=== PATIENT | female | born 1990 | race Caucasian/White ===

== ENCOUNTER 2017-10-22 16:55 | Inpatient (IN) | payer OTHER, SELFPAY ==
[2017-10-22 16:23] VITALS: BP 136/90; BMI 34.3
[2017-10-22] MEDS: Lactated Ringers 1,000 ML 50 ML IV (17:45)
[2017-10-22 18:06] VITALS: BMI 33.2
[2017-10-22 18:07] LABS: Hematocrit 38.5 % (37-47); Hemoglobin 13.3 g/dl (12.0-15.0); Mean Corp Hgb Conc 34.5 g/gl (32-36); Mean Corpuscular Volume 86.7 fL (81-99); Mean Platelet Vol. 10.3 fl (6.2-12.0); Platelet Count 187 K/mm3 (150-450); RBC Distribution Width CV 13.8 % (11.6-14.6); RBC Distribution Width SD 42.8 fl (35.1-43.9); Red Blood Count 4.44 M/mm3 (4.2-5.4)
[2017-10-22 18:08] LABS: Scan Indicated on CBC? Y/N NO
[2017-10-22 18:19] LABS: Creatinine, Serum 0.54 mg/dL (0.55-1.02)
[2017-10-22 18:20] LABS: AST(SGOT) 11 U/L (15-37); Alanine Aminotransfer ALT/SGPT 18 U/L (13-56); EST Glomerular Filtration Rate 142 mL/min (>60); Est Glom Filt Rate - Afr Amer 172 mL/min (>60); Uric Acid 4.8 mg/dL (2.6-6.0)
[2017-10-22 18:27] LABS: Prothrombin Time (Protime)PT. 12.3 SECONDS (11.7-14.9)
[2017-10-22 20:07] LABS: Protein, Urine (Random) 14.5 mg/dL (<11.9); Protein:Creat Ratio 139 mg/g CRE (0-200)
[2017-10-22] MEDS: Oxytocin 30 units/NS 500 ml 30 UNITS/500 ML IV.SOLN 334 UNITS IV (23:13)
[2017-10-22] MEDS: Oxytocin 30 units/NS 500 ml 30 UNITS/500 ML IV.SOLN 167 UNITS IV (23:30)
--- NOTE | 2017-10-23 00:13 | PCM.HPOB.BLA ---
- Problem List (1) Active labor at term Status: Acute (2) Rubella non-immune status, antepartum Status: Acute Comment: MMR PP (3) Supervision of normal first Status: Acute Qualifiers: Comment: TAO 11/04/17 gender surprise chuck History and Physical Date of Admission: 10/23/17 Intake Vital Signs 10/22/17 Height 5 ft 5 in 10/22/17 Weight: 206 lb 6 oz 10/22/17 Body Mass Index (BMI) 34.3 10/22/17 Blood Pressure 136/90 Intake Visit Reasons: 38 weeks Chief Complaint: est ob Spanish Interpreter Required: No Is patient in pain?: No Allergies No Known Allergies Allergy (Verified 10/22/17 16:23) Medications vitamin,calcium,cvztvdfb-gzud-apiqr acid tablet 1 tab PO QDAY 08/25/17 [History Confirmed 10/22/17] Last Menstral Period: 01/20/17 Zika: Zika virus screening: Negative : No PFSH PFSH Social History Smoking Status: Never smoker second hand exposure: No alcohol intake: never substance use type: does not use what type of physical activity do you participate in: walking frequency: 3-4 times per week duration: 15-30 minutes/day seatbelt use: always additional social history: [employer] Pregancy History 1 Elective abortions Hx Para Spontaneous abortions Hx # Term Pregnancies Ectopic pregnancies Hx # Pregnancies Multiple births # of living children HPI 38 weeks: Details: MELVINA TORRES is a 27 year old who presents for routine OB visit and is now 5 cm and IAL. FHT 150s. no vb or lof. she has mildly elevated bps at 130/90s OB Visit TAO Calculator Estimated Delivery Date 11/04/17 Based on Ultrasound Date 03/30/17 Current WG 38w 1d Number 1 Expected Delivery Route/Plan Specific Issue/Plans Flu and tdap given at employer([employer]) 28wk GCT and CBC at employer and normal/scanned to [place] minichart given Initial Weight: Not Recorded Date EGA Weight BP Urine Prot Glucose FHR FuHt Pres Mov CTX Dilation Effaced St Visit Note Provider Comments 08/25/17 29w 6d 197 lb 8 oz 108/70 139 30 Cephalic Active absent Doing well without concerns 12/19/17 31w 6d 200 lb 133/82 135 32 Cephalic Active absent Doing well without concerns SM 09/23/17 34w 0d 202 lb 4 oz 132/75 Negative Negative 152 34 Cephalic Active absent Mild URI sx. Denies CTX, LOF, VB. Good FM 10/09/17 36w 2d 205 lb 2 oz 129/76 Positive Negative 150 36 Cephalic Active absent 3 6: 0 -2 Mild URI sx. Denies CTX, LOF, VB. Good FM no vb lof good fm no regular ctx SM 10/15/17 37w 1d 205 lb 2 oz 132/89 Negative Negative 150 37 Cephalic Active absent 4.5 7: 0 -1 no vb lof good fm no regular ctx SM Visit Notes Visit Date: 10/15/17 ??no vb lof good fm no regular ctx ??Ivy?Robel??on?10/09/17 ??no vb lof good fm no regular ctx ??Ivy?Robel??on?10/09/17 Visit Date: 10/09/17 ??no vb lof good fm no regular ctx ??Ivy?Robel??on?10/09/17 ??Mild URI sx. Denies CTX, LOF, VB. Good FM ??Hope?Rayland,?FLOUR MIXER HELPER-C?on?09/23/17 ??Mild URI sx. Denies CTX, LOF, VB. Good FM ??Hope?Tatiana,?FLOUR MIXER HELPER-C?on?09/23/17 Visit Date: 09/23/17 ??Mild URI sx. Denies CTX, LOF, VB. Good FM ??Hope?Tatiana,?FLOUR MIXER HELPER-C?on?09/23/17 ??Doing well without concerns ??Hope?Rayland,?FLOUR MIXER HELPER-C?on?08/25/17 Visit Date: 09/08/17 ??Doing well without concerns ??Hope?Rayland,?FLOUR MIXER HELPER-C?on?08/25/17 Visit Date: 08/25/17 ??Doing well without concerns ??Hope?Rayland,?FLOUR MIXER HELPER-C?on?08/25/17 ACOG First Trimester First Trimester: Desire for , Alcohol, Tobacco Cessation, Illicit/Recreational Drug/Substance Use, Intimate Partner Violence, Barriers to care, Unstable Housing, Communication Barriers, Environmental/Work Hazards, Anticipated Course of Care, Toxoplasmosis Precations, Use of Any medications, Sexual activity, Exercise, Dental Care, Sauna/Hot tub use, Seat Belt use, Childbirth classes/Hospital facilities, , Travel, Indications for US and Screening for Aneuploidy Second Trimester Second Trimester: Signs and Symptoms of Labor, Selecting a care provider, Reproductive Life Planning, Care Planning, Tobacco Cessation, Depression/Anxiety and Intimate Partner Violence Third Trimester Third Trimester: Pain Management Plans, Trial of Labor after Counseling, Labor support person(s), Immediate Larc, Circumcision preference, Movement Monitoring, Signs and Symptoms of Preeclampsia, Labor Signs, Cervical Ripening/Labor Induction Counseling, Postterm Counseling, Feeding Yes , [place] Education, Family Medical Leave or Disability Forms, Depression and Depression; discussed Intimate Partner Violence ROS Const Denies fever(s) GI Denies abdominal pain, Reports as per HPI Denies vaginal discharge, Denies abnormal vaginal bleeding, Reports as per HPI Exam Const General: healthy appearing, comfortable, no acute distress GI Inspection: normal to inspection Palpation: soft, nontender Assessment & Plan Problems 1. Encounter for supervision of normal first in third trimester Z34.03 TAO 11/04/17 gender surprise chuck 2. Rubella non-immune status, antepartum O99.89; Z28.3 MMR PP Plan ial to l and d, check preeclampsia labs Orders Orders: POC Urinalysis 2 Dip (Clinic) Today Results [id number] Office Urine Glucose Negative Last Edit by Jacklyn Pozo on 10/22/17 16:25 Office Urine Protein Negative Last Edit by Jacklyn Pozo on 10/22/17 16:25 Coding Level of Care Code OB Routine Diagnoses Encounter for supervision of normal first in third trimester Z34.03 ??Trimester: third trimester Rubella non-immune status, antepartum O99.89; Z28.3
--- NOTE | 2017-10-23 00:16 | HP.PCM_ITS ---
- Problem List (1) Active labor at term Status: Acute (2) Rubella non-immune status, antepartum Status: Acute Comment: MMR PP (3) Supervision of normal first Status: Acute Qualifiers: Comment: TAO 11/04/17 gender surprise chuck History and Physical Date of Admission: 10/23/17 Intake Vital Signs 3 10/22/17 Height 5 ft 5 in 10/22/17 Weight: 206 lb 6 oz 10/22/17 Body Mass Index (BMI) 34.3 10/22/17 Blood Pressure 136/90 Intake Visit Reasons: 38 weeks Chief Complaint: est ob Actuarial Associate Required: No Is patient in pain?: No Allergies No Known Allergies Allergy (Verified 10/22/17 16:23) Medications vitamin,calcium,btzlbsox-yhdd-ymkdb acid tablet 1 tab PO QDAY 08/25/17 [History Confirmed 10/22/17] Last Menstral Period: 01/20/17 Zika: Zika virus screening: Negative : No PFSH PFSH Social History Smoking Status: Never smoker second hand exposure: No alcohol intake: never substance use type: does not use what type of physical activity do you participate in: walking frequency: 3-4 times per week duration: 15-30 minutes/day seatbelt use: always additional social history: [employer] Pregancy History 2 1 Elective abortions Hx Para Spontaneous abortions Hx # Term Pregnancies Ectopic pregnancies Hx # Pregnancies Multiple births # of living children HPI 38 weeks: Details: MELVINA TORRES is a 27 year old who presents for routine OB visit and is now 5 cm and IAL. FHT 150s. no vb or lof. she has mildly elevated bps at 130/90s OB Visit TAO Calculator 2 Estimated Delivery Date 11/04/17 Based on Ultrasound Date 03/30/17 Current WG 38w 1d Number 1 Expected Delivery Route/Plan Specific Issue/Plans Flu and tdap given at employer([employer]) 28wk GCT and CBC at employer and normal/scanned to [place] minichart given Initial Weight: Not Recorded Date EGA Weight BP Urine Prot Glucose FHR FuHt Pres Mov CTX Dilation Effaced St Visit Note Provider Comments 08/25/17 29w 6d 197 lb 8 oz 108/70 139 30 Cephalic Active absent Doing well without concerns 09/08/17 31w 6d 200 lb 133/82 135 32 Cephalic Active absent Doing well without concerns SM 09/23/17 34w 0d 202 lb 4 oz 132/75 Negative Negative 152 34 Cephalic Active absent Mild URI sx. Denies CTX, LOF, VB. Good FM 10/09/17 36w 2d 205 lb 2 oz 129/76 Positive Negative 150 36 Cephalic Active absent 3 6: 0 -2 Mild URI sx. Denies CTX, LOF, VB. Good FM no vb lof good fm no regular ctx SM 10/15/17 37w 1d 205 lb 2 oz 132/89 Negative Negative 150 37 Cephalic Active absent 4.5 7: 0 -1 no vb lof good fm no regular ctx SM Visit Notes Visit Date: 10/15/17 ??no vb lof good fm no regular ctx ??Ivy?Robel??on?10/09/17 ??no vb lof good fm no regular ctx ??Ivy?Robel??on?10/09/17 Visit Date: 10/09/17 ??no vb lof good fm no regular ctx ??Ivy?Robel??on?10/09/17 ??Mild URI sx. Denies CTX, LOF, VB. Good FM ??Hope?Gilmore,?MEDIA RELATIONS ASSOCIATE-C?on?09/23/17 ??Mild URI sx. Denies CTX, LOF, VB. Good FM ??Hope?Tatiana,?MEDIA RELATIONS ASSOCIATE-C?on?09/23/17 Visit Date: 09/23/17 ??Mild URI sx. Denies CTX, LOF, VB. Good FM ??Hope?Tatiana,?MEDIA RELATIONS ASSOCIATE-C?on?09/23/17 ??Doing well without concerns ??Hope?Tatiana,?MEDIA RELATIONS ASSOCIATE-C?on?08/25/17 Visit Date: 09/08/17 ??Doing well without concerns ??Hope?Gilmore,?MEDIA RELATIONS ASSOCIATE-C?on?08/25/17 Visit Date: 08/25/17 ??Doing well without concerns ??Hope?Tatiana,?MEDIA RELATIONS ASSOCIATE-C?on?08/25/17 ACOG First Trimester First Trimester: Desire for , Alcohol, Tobacco Cessation, Illicit/ Recreational Drug/Substance Use, Intimate Partner Violence, Barriers to care, Unstable Housing, Communication Barriers, Environmental/Work Hazards, Anticipated Course of Care, Toxoplasmosis Precations, Use of Any medications, Sexual activity, Exercise, Dental Care, Sauna/Hot tub use, Seat Belt use, Childbirth classes/Hospital facilities, , Travel, Indications for US and Screening for Aneuploidy Second Trimester Second Trimester: Signs and Symptoms of Labor, Selecting a care provider, Reproductive Life Planning, Care Planning, Tobacco Cessation, Depression/Anxiety and Intimate Partner Violence Third Trimester Third Trimester: Pain Management Plans, Trial of Labor after Counseling , Labor support person(s), Immediate Larc, Circumcision preference, Movement Monitoring, Signs and Symptoms of Preeclampsia, Labor Signs, Cervical Ripening/Labor Induction Counseling, Postterm Counseling, Feeding Yes , Education, Family Medical Leave or Disability Forms, Depression and Depression; discussed Intimate Partner Violence ROS Const Denies fever(s) GI Denies abdominal pain, Reports as per HPI Denies vaginal discharge, Denies abnormal vaginal bleeding, Reports as per HPI Exam Const General: healthy appearing, comfortable, no acute distress GI Inspection: normal to inspection Palpation: soft, nontender Assessment & Plan Problems 1. Encounter for supervision of normal first in third trimester Z34.03 TAO 11/04/17 gender surprise chuck 2. Rubella non-immune status, antepartum O99.89; Z28.3 MMR PP Plan ial to l and d, check preeclampsia labs Orders Orders: 2 POC Urinalysis 2 Dip (Clinic) Today Results [id number] 2 Office Urine Glucose Negative Last Edit by Jacklyn Pozo on 10/22/17 16:25 Office Urine Protein Negative Last Edit by Jacklyn Pozo on 10/22/17 16 :25 Coding Level of Care Code OB Routine Diagnoses Encounter for supervision of normal first in third trimester Z34.03 ??Trimester: third trimester Rubella non-immune status, antepartum O99.89; Z28.3
--- NOTE | 2017-10-23 00:16 | PCM.OB.VAG ---
- Problem List (1) Active labor at term Status: Acute (2) Rubella non-immune status, antepartum Status: Acute Comment: MMR PP (3) Supervision of normal first Status: Acute Qualifiers: Comment: TAO 11/04/17 gender surprise chuck (4) Normal vaginal delivery Status: Acute Vaginal Delivery Maternal Presentation: Active Labor 27 yo @ 38w1d presents IAL Amniotic Membrane Rupture Type: Artificial Amniotic Fluid Description: Clear Final TAO: 11/04/17 Gestational age: 38 Weeks and 2 Days Date of Procedure: 10/22/17 Pre-Operative Diagnosis: ial Post-Operative Diagnosis: same Surgery/ Procedure Performed: Spontaneous Vaginal Delivery Type of Anesthesia: Local with 1% lidocaine, Pudendal block with 1% lidocaine Description of Procedure: pudendal block placed without difficulty after betadine prepped. 10cc lidocaine injected bilaterally 1 cm medial and posterior to ischial spine. head delivered atraumatically follow by rest of , placed on maternal abdomen, and then delayed cord clamping followed by spontaneous placental expulsion. 2nd degree laceration noted and repaired in the usual fashion with 2-0 vicryl without complication. local lidocaine used for anesthesia. Presentation: [facility] Placental Delivery Description: Spontaneous Placenta Disposition: [facility] Cord Vessel Description: 3 Vessels Cord Entanglement: None Estimated Blood Loss: 400 A gender: Male Episiotomy Description: None Laceration: Perineal Extension/lac, 2nd degree Medications given after delivery: IV Pitocin Complications: None
--- NOTE | 2017-10-23 00:19 | OP.PCM_ITS ---
- Problem List (1) Active labor at term Status: Acute (2) Rubella non-immune status, antepartum Status: Acute Comment: MMR PP (3) Supervision of normal first Status: Acute Qualifiers: Comment: TAO 11/04/17 gender surprise chuck (4) Normal vaginal delivery Status: Acute Vaginal Delivery Maternal Presentation: Active Labor 27 yo @ 38w1d presents IAL Amniotic Membrane Rupture Type: Artificial Amniotic Fluid Description: Clear Final TAO: 11/04/17 Gestational age: 38 Weeks and 2 Days Date of Procedure: 10/22/17 Pre-Operative Diagnosis: ial Post-Operative Diagnosis: same Surgery/ Procedure Performed: Spontaneous Vaginal Delivery Type of Anesthesia: Local with 1% lidocaine, Pudendal block with 1% lidocaine Description of Procedure: pudendal block placed without difficulty after betadine prepped. 10cc lidocaine injected bilaterally 1 cm medial and posterior to ischial spine. head delivered atraumatically follow by rest of , placed on maternal abdomen, and then delayed cord clamping followed by spontaneous placental expulsion. 2nd degree laceration noted and repaired in the usual fashion with 2 -0 vicryl without complication. local lidocaine used for anesthesia. Presentation: [facility] Placental Delivery Description: Spontaneous Placenta Disposition: [facility] Cord Vessel Description: 3 Vessels Cord Entanglement: None Estimated Blood Loss: 400 Infant A gender: Male Episiotomy Description: None Laceration: Perineal Extension/lac, 2nd degree Medications given after delivery: IV Pitocin Complications: None
[2017-10-23] MEDS: Naproxen 250 MG Tablet PO ×3 (01:06→19:57)
[2017-10-23 04:14] VITALS: BP 120/75; PULSE 87; RESP 18; TEMP 37.2; O2SAT 98
[2017-10-23 08:00] VITALS: BP 113/71; PULSE 75; RESP 16; TEMP 36.9; O2SAT 96
[2017-10-23] MEDS: Senna/Docusate Sodium 1 Tablet PO (11:18)
[2017-10-23] MEDS: Dibucaine 30 GM Tube 1 APPLIC TOPICAL (11:19)
[2017-10-23] MEDS: Prenatal Vits Tablet 1 TABLET PO (11:19)
[2017-10-23 12:50] VITALS: BP 117/62; PULSE 80; RESP 16; TEMP 37.2; O2SAT 97
[2017-10-23 16:13] VITALS: BP 129/82; PULSE 87; RESP 16; TEMP 36.9; O2SAT 97
[2017-10-23 19:50] VITALS: BP 139/88; PULSE 120; RESP 16; TEMP 36.8; O2SAT 99
[2017-10-24 01:54] VITALS: BP 128/82; PULSE 82; RESP 16; TEMP 36.9; O2SAT 96
[2017-10-24] MEDS: Naproxen 250 MG Tablet PO (05:44)
[2017-10-24 07:57] VITALS: BP 133/87; PULSE 100; RESP 16; TEMP 36.8; O2SAT 99
--- NOTE | 2017-10-24 08:21 | PCM.PN.OB ---
Patient Problems: Active and Suspected Problems (Last Reviewed 10/22/17 @ 16:23 by Jacklyn Pozo) Active labor at term (Acute) Normal vaginal delivery (Acute) Subjective: see 10/23/17 at 1700 doing well no complaints - Physical Exam General: Alert, Oriented x3 Lungs: Normal air movement Abdomen: Soft Vital Signs Temp Pulse Resp BP Pulse Ox 98.3 F 100 16 133/87 H 99 10/24/17 07:57 10/24/17 07:57 10/24/17 07:57 10/24/17 07:57 10/24/17 07:57 Oxygen Delivery Method Room Air Weight: 206 lb Body Mass Index (BMI) 33.2 Intake and Output for Last 24 Hours 10/22/17 10/23/17 10/24/17 23:59 23:59 23:59 Intake Total 695 / 695 334 / 334 Output Total 150 / 150 1800 / 1800 Balance 545 / 545 -1466 / -1466 Assessment/Plan Active and Suspected Problems (Last Reviewed 10/22/17 @ 16:23 by Jacklyn Pozo) Active labor at term (Acute) Normal vaginal delivery (Acute) s/p routine care
--- NOTE | 2017-10-24 08:27 | PN.OBGYN_ITS ---
Patient Problems: Active and Suspected Problems (Last Reviewed 10/22/17 @ 16:23 by Jacklyn oPzo) Active labor at term (Acute) Normal vaginal delivery (Acute) - Physical Exam General: Alert, Oriented x3 Vital Signs Temp Pulse Resp BP Pulse Ox 98.3 F 100 16 133/87 H 99 10/24/17 07:57 10/24/17 07:57 10/24/17 07:57 10/24/17 07:57 10/24/17 07:57 Oxygen Delivery Method Room Air Weight: 206 lb Body Mass Index (BMI) 33.2 Intake and Output for Last 24 Hours 10/22/17 10/23/17 10/24/17 23:59 23:59 23:59 Intake Total 695 / 695 334 / 334 Output Total 150 / 150 1800 / 1800 Balance 545 / 545 -1466 / -1466 Assessment/Plan Active and Suspected Problems (Last Reviewed 10/22/17 @ 16:23 by Jacklyn Pozo) Active labor at term (Acute) Normal vaginal delivery (Acute) s/p routine care [facility]
--- NOTE | 2017-10-24 08:27 | PCM.DCVAG ---
Additional Instructions: If you experience any of the following, contact your healthcare provider. Bleeding that soaks a pad every hour for 2 hours Fever 100.4 or higher Unrelieved incision or abdominal pain Swelling, redness, discharge or bleeding from your incision or episiotomy site Your incision begins to separate Problems urinating (including inability to urinate or burning while urinating). Visual changes Severe headache Flu-like symptoms Pain or redness in one of both of your breasts Pain, warmth, tenderness or swelling in your legs, especially the calf area Frequent nausea and vomiting Symptoms of depression or anxiety If you experience any of the following, call 911 or go to the nearest Emergency Room. Chest pain Problems breathing Seizure activity Partial or complete paralysis of a body part, slurred speech, weakness or drooping of the face, or a sudden inability to walk or hold your balance Allergies/Adverse Reactions: Allergies No Known Allergies Allergy (Verified 10/22/17 19:22) Medications to take at Discharge vitamin,calcium,hhovqqzr-hykd-ydmzr acid tablet 1 tab PO QDAY 08/25/17 Please Follow Up With: Ivy Huston MD - [phone] When: Call to make an appointment with your doctor in 6 weeks. If you had elevated Blood pressure or 4th degree laceration you will need to be seen in 2 weeks. Primary Care Physician: Almita Hussein [Primary Care Provider] -
--- NOTE | 2017-10-24 08:28 | DCINST_ITS ---
Additional Instructions: If you experience any of the following, contact your healthcare provider. * Bleeding that soaks a pad every hour for 2 hours * Fever 100.4 or higher * Unrelieved incision or abdominal pain * Swelling, redness, discharge or bleeding from your incision or episiotomy site * Your incision begins to separate * Problems urinating (including inability to urinate or burning while urinating) . * Visual changes * Severe headache * Flu-like symptoms * Pain or redness in one of both of your breasts * Pain, warmth, tenderness or swelling in your legs, especially the calf area * Frequent nausea and vomiting * Symptoms of depression or anxiety If you experience any of the following, call 911 or go to the nearest Emergency Room. * Chest pain * Problems breathing * Seizure activity * Partial or complete paralysis of a body part, slurred speech, weakness or drooping of the face, or a sudden inability to walk or hold your balance Allergies/Adverse Reactions: Allergies No Known Allergies Allergy (Verified 10/22/17 19:22) Medications to take at Discharge vitamin,calcium,naqugfwt-ypxj-croll acid tablet 1 tab PO QDAY 08/25/17 Please Follow Up With: Ivy Huston MD - [phone] When: Call to make an appointment with your doctor in 6 weeks. If you had elevated Blood pressure or 4th degree laceration you will need to be seen in 2 weeks. Primary Care Physician: Almita Hussein [Primary Care Provider] -
[2017-10-24 13:00] VITALS: BP 125/78; PULSE 96; RESP 16; TEMP 37; O2SAT 97
--- NOTE | 2017-10-24 16:02 | NURSING ---
pt taken out in wheelchair after giving verbal and written discharge instructions. pt and verbalized understanding. baby in carseat on pt lab accompanied by father of baby.
== END 2017-10-24 15:45 | disposition home or self-care (01) | DRG 775 ==
PROVIDERS: Admitting Provider Obstetrics & Gynecology; Family Provider Family Medicine; PCP Family Medicine; Visit Provider Obstetrics & Gynecology
DX: O70.1 Second degree perineal laceration during delivery (principal); Z37.0 Single live birth; O99.89 Other specified diseases and conditions complicating pregnancy, childbirth and the puerperium; Z28.3 Underimmunization status; Z3A.38 38 weeks gestation of pregnancy
CPT/HCPCS: 59025; 59050; 82565; 82570; 84156; 84450; 84460; 84550; 85027; 85610; 85730; 86850; 86900; 99218; J7120; G0378

== ENCOUNTER 2017-12-01 10:10 | Outpatient (CLI) | payer OTHER, SELFPAY ==
[2017-12-03 12:52] LABS: HPV Reflexed? NOT INDICATED
== END 2017-12-01 11:10 | disposition home or self-care (01) ==
LOC: WPOUT 10:19 → WP 10:24
PROVIDERS: Family Provider Family Medicine; PCP Family Medicine; Visit Provider Obstetrics & Gynecology
DX: Z12.4 Encounter for screening for malignant neoplasm of cervix (principal); Z39.1 Encounter for care and examination of lactating mother
CPT/HCPCS: 88175; 96152; G0145

== ENCOUNTER → 2019-07-07 14:37 | Outpatient (CLI) | payer OTHER, SELFPAY ==
[2019-07-07 13:42] VITALS: BMI 33.2
[2019-07-07 15:05] LABS: Absolute Neutrophil Count 5.6 X10^3/uL (2.0-7.7); Basophil# 0.02 X10^3/uL; Basophil% 0.2 % (0-1); Eosinophil# 0.03 X10^3/uL; Eosinophils% 0.4 % (0-5); Hemoglobin 13.2 g/dL (12.0-15.0); Lymphocyte % 24.2 % (19-41); Mean Corp Hgb Conc 33.8 g/dL (32-36); Mean Corpuscular Hgb 29.6 pg (27.0-32.0); Mean Corpuscular Volume 87.4 fL (81-99); Mean Platelet Vol. 9.3 fl (6.2-12.0); Monocyte# 0.58 X10^3/uL; NRBC Flagged by Analyzer 0 % (0-5); Neutrophil # 5.61 X10^3/uL (2.7-7.7); Neutrophil % 67.8 % (47-70); Platelet Count 211 K/mm3 (150-450); RBC Distribution Width CV 12.2 % (11.6-14.6); RBC Distribution Width SD 39.4 fl (35.1-43.9); Red Blood Count 4.46 M/mm3 (4.2-5.4); White Blood Count 8.3 K/mm3 (4.4-11.0)
[2019-07-07 18:31] LABS: Chlamydia Trachomatis by PCR Negative (Negative); Neisserai gonorrhoeae by PCR Negative (Negative); Probe Check PASS; Sample Adequacy Control PASS; Specimen Processing Control PASS
[2019-07-08 10:07] LABS: HIV - WCH Non-Reactive (Nonreactive); Hepatitis B Surface Antigen Non-Reactive (Nonreactive); Rubella IgG 57.7 IU/mL
[2019-07-15 02:36] LABS: Rapid Plasmin Reagin (RPR) NONREACTIVE (NONREACTIVE)
== END ==
PROVIDERS: Family Provider Family Medicine; PCP Family Medicine; Referring Provider Nurse Practitioner Women's Health; Visit Provider Nurse Practitioner Women's Health
DX: Z34.90 Encounter for supervision of normal pregnancy, unspecified, unspecified trimester (principal)
CPT/HCPCS: 36415; 85025; 86592; 86703; 86762; 86850; 86900; 86901; 87086; 87088; 87340; 87491; 87591

== ENCOUNTER → 2019-07-08 13:57 | Outpatient (CLI) | payer OTHER, SELFPAY ==
[2019-07-07 13:42] VITALS: BMI 33.2
--- NOTE | 2019-07-08 14:00 | US_ITS ---
STUDY: FIRST TRIMESTER OBSTETRICAL ULTRASOUND REASON FOR EXAM: Female, 29 years old . Gestational age. LMP: May 07, 2019. TECHNIQUE: Transvaginal TECHNICAL QUALITY: Adequate. PRIOR ULTRASOUND: None. FINDINGS: There is visualization of a single gestational sac in a normal intrauterine position. The mean sac diameter (MSD) measures 3.5 cm, indicating an estimated gestational age (EGA) of 9 weeks, 0 days. The gestational sac shape is within normal limits. There is a visualized yolk sac. The yolk sac measures 3 mm. The placenta is non-visualized. There is visualization of a live embryo. The crown-rump length (CRL) measures 2.2 cm, indicating an estimated gestational age (EGA) of 8 weeks, 6 days. There is demonstrated cardiac activity with a heart rate of 178 bpm. The estimated gestation age (EGA) by LMP is 8 weeks, 6 days. The estimated date of delivery (TAO) by LMP is February 11, 2020.. The estimated gestation age (EGA) by US is 9 weeks, 0 days. The estimated date of delivery (TAO) by US is February 10, 2020. The uterus measures 8.5 cm x 7.2 cm x 5.8 cm. The uterus is retroverted.. There is no demonstrated uterine fibroid. The cervix is closed. The right ovary measures 2.2 cm x 1.7 cm x 1.6 cm. There is no right ovarian cyst. There is no visualized right adnexal mass or complex lesion. The left ovary measures 3.5 cm x 2.6 cm x 1.8 cm. There is no left ovarian cyst. There is no visualized left adnexal mass or complex lesion. There is no fluid in the cul de sac. US/Transvaginal w/Preg US IMPRESSION: Single live intrauterine gestation with a mean gestational age of 9 weeks. Electronically Signed: James Craig, at 14:47 EDT , Service support ,
== END ==
PROVIDERS: Family Provider Family Medicine; PCP Family Medicine; Referring Provider Nurse Practitioner Women's Health; Visit Provider Nurse Practitioner Women's Health
DX: O26.849 Uterine size-date discrepancy, unspecified trimester (principal); Z3A.00 Weeks of gestation of pregnancy not specified
CPT/HCPCS: 76817

== ENCOUNTER → 2019-08-03 14:21 | Outpatient (CLI) | payer OTHER, SELFPAY ==
[2019-08-03 14:04] VITALS: BMI 33.2
== END ==
PROVIDERS: Family Provider Family Medicine; PCP Family Medicine; Referring Provider Nurse Practitioner Women's Health; Visit Provider Nurse Practitioner Women's Health
DX: Z34.82 Encounter for supervision of other normal pregnancy, second trimester (principal)
CPT/HCPCS: 36415

== ENCOUNTER → 2019-09-27 09:51 | Outpatient (CLI) | payer OTHER, SELFPAY ==
[2019-09-02 11:38] VITALS: BMI 33.2
--- NOTE | 2019-09-27 09:52 | US_ITS ---
STUDY: SECOND AND THIRD TRIMESTER OBSTETRICAL ULTRASOUND REASON FOR EXAM: Female, 29 years old ANATOMY LMP: May 07, 2019. TECHNIQUE: Transabdominal TECHNICAL QUALITY: Adequate. PRIOR ULTRASOUND: Comparison is made with prior study dated July 08, 2019. FINDINGS: There is a single intrauterine fetus. The fetus is in a breech presentation. There is demonstrated cardiac activity with a heart rate of 150 bpm. There is a normal amniotic fluid volume. The largest amniotic fluid pocket measures 3.1 cm x 6.1 cm. The amniotic fluid index (ANGE) is 11.24 cm. The placenta is anterior in location and is not low lying. There are Grade 0 placental changes. The cervix measures 3.9 cm in length. The adnexal regions are not visualized. BIOMETRY: BPD: 4.71 cm: 20 weeks, 1 days HC: 17.81 cm: 20 weeks, 1 days AC: 15.66 cm: 20 weeks, 5 days FL: 3.29 cm: 20 weeks, 1 days CI: 75.7% FL/BPD: 69.9% FL/HC: FL/AC: 21% HC/AC: 1.14 age by current US: 20 weeks, 2 days. TAO by current US: February 12, 2020. Estimated weight: 360 grams, +/- 53 grams, 50 %. age by prior US: 20 weeks, 4 days. TAO by prior US: February 10, 2020. Age by LMP: 20 weeks, 3 days. TAO by LMP: February 11, 2020. ANATOMY: Gender: Indeterminant Cranium: Normal lateral ventricles. Normal choroid plexus. Normal cerebellum. Normal cisterna magna. Normal face, nose and lips. Chest: Normal 4-chamber heart. Abdomen/Pelvis: Normal diaphragm. Normal stomach. Normal abdominal wall. Normal cord insertion. Normal 3 vessel cord. Normal kidneys. Normal bladder. Spine: Limited visualization of the spine due to the position. Extremities: Normal bilateral upper extremities. Normal bilateral lower extremities. US/OB Anatomy Scan IMPRESSION: Single live intrauterine gestation with a mean gestational age of 20 weeks and 4 days. The measurements obtained today following the normal expected range. Limited visualization of the spine due to the positioning. Electronically Signed: James Craig, at 15:58 EST , Service support ,
== END ==
PROVIDERS: Family Provider Family Medicine; PCP Family Medicine; Referring Provider Obstetrics & Gynecology; Visit Provider Obstetrics & Gynecology
DX: Z36.89 Encounter for other specified antenatal screening (principal)
CPT/HCPCS: 76805

== ENCOUNTER → 2019-09-28 11:10 | Outpatient (CLI) | payer OTHER, SELFPAY ==
[2019-09-28 10:48] VITALS: BMI 26.4
== END ==
PROVIDERS: Family Provider Family Medicine; PCP Family Medicine; Referring Provider Obstetrics & Gynecology; Visit Provider Obstetrics & Gynecology
DX: Z36.9 Encounter for antenatal screening, unspecified (principal)
CPT/HCPCS: 36415

== ENCOUNTER → 2019-11-14 | Outpatient (CLI) | payer OTHER, SELFPAY ==
[2019-11-14 15:00] VITALS: BMI 33.2
[2019-11-14 16:24] LABS: Absolute Lymphocyte Count 2.25 X10^3/uL (0.83-4.51); Absolute Neutrophil Count 7.4 X10^3/uL (2.0-7.7); Basophil# 0.02 X10^3/uL; Basophil% 0.2 % (0-1); Eosinophil# 0.02 X10^3/uL; Eosinophils% 0.2 % (0-5); Hematocrit 36.7 % (37-47); Hemoglobin 12.1 g/dL (12.0-15.0); Lymphocyte # 2.25 X10^3/ul (4.0); Lymphocyte % 21.9 % (19-41); Mean Corpuscular Hgb 29.5 pg (27.0-32.0); Mean Corpuscular Volume 89.5 fL (81-99); Mean Platelet Vol. 9.4 fl (6.2-12.0); Monocyte# 0.52 X10^3/uL; Monocyte% 5.1 % (0-10); NRBC Flagged by Analyzer 0 % (0-5); Neutrophil # 7.42 X10^3/uL (2.7-7.7); Neutrophil % 72.1 % (47-70); Platelet Count 169 K/mm3 (150-450); RBC Distribution Width CV 13.1 % (11.6-14.6); RBC Distribution Width SD 43.1 fl (35.1-43.9); White Blood Count 10.3 K/mm3 (4.4-11.0)
[2019-11-14 16:44] LABS: Glucose Challenge Gest 1H 50g 139 mg/dL (70-140)
== END | disposition home or self-care (01) ==
LOC: PAVLAB 15:32
PROVIDERS: PCP Family Medicine; Referring Provider Obstetrics & Gynecology; Visit Provider Obstetrics & Gynecology
DX: Z36.89 Encounter for other specified antenatal screening (principal)
CPT/HCPCS: 36415; 82950; 85025

== ENCOUNTER → 2019-11-18 | Outpatient (CLI) | payer OTHER, SELFPAY ==
[2019-11-14 15:00] VITALS: BMI 33.2
[2019-11-18 07:40] LABS: Glucose GTT-Gestation. Fasting 88 mg/dL (<105)
[2019-11-18 08:45] LABS: Glucose GTT-Gestational 1 Hr 129 mg/dL (<190)
[2019-11-18 10:30] LABS: Glucose GTT-Gestational 2 Hr 101 mg/dL (<165)
[2019-11-18 10:53] LABS: Glucose GTT-Gestational 3 Hr 78 L (<145)
== END | disposition home or self-care (01) ==
LOC: LAB 07:00
PROVIDERS: PCP Family Medicine; Visit Provider Obstetrics & Gynecology
DX: O99.810 Abnormal glucose complicating pregnancy (principal); Z3A.00 Weeks of gestation of pregnancy not specified
CPT/HCPCS: 36415; 82951; 82952

== ENCOUNTER → 2020-01-19 | Outpatient (CLI) | payer OTHER, SELFPAY ==
[2020-01-19 14:25] VITALS: BMI 33.2
== END | disposition home or self-care (01) ==
LOC: LABSPEC 16:11
PROVIDERS: PCP Family Medicine; Referring Provider Obstetrics & Gynecology; Visit Provider Obstetrics & Gynecology
DX: Z34.80 Encounter for supervision of other normal pregnancy, unspecified trimester (principal)
CPT/HCPCS: 87081

== ENCOUNTER → 2020-01-20 | Outpatient (CLI) | payer OTHER, SELFPAY ==
[2020-01-19 14:25] VITALS: BMI 33.2
--- NOTE | 2020-01-20 18:22 | US_ITS ---
STUDY: SECOND AND THIRD TRIMESTER OBSTETRICAL ULTRASOUND REASON FOR EXAM: Female, 29 years old. Growth. Date discrepancy. LMP: May 07, 2019. TECHNIQUE: Transabdominal TECHNICAL QUALITY: July 08, 2019 and September 27, 2019. PRIOR ULTRASOUND: None. FINDINGS: There is a single intrauterine fetus. The fetus is in a cephalic presentation. There is demonstrated cardiac activity with a heart rate of 125 bpm. There is a normal amniotic fluid volume. The largest amniotic fluid pocket measures 3.75 cm. The amniotic fluid index (ANGE) is 10.7 cm. The placenta is anterior in location and is not low lying. There are Grade 1 placental changes. The cervix measures 3.1 cm in length. The adnexal regions are not visualized. BIOMETRY: BPD: 8.83 cm: 35 weeks, 5 days HC: 32.39 cm: 36 weeks, 5 days AC: 30.89 cm: 34 weeks, 6 days FL: 7.01 cm: 36 weeks, 0 days CI: 82 FL/BPD: 79 FL/HC: FL/AC: 23 HC/AC: 1.05 age by current US: 35 weeks, 6 days. TAO by current US: February 18, 2020. Estimated weight: 2673 grams, +/- 390 grams, 20 %. age by prior US: 36 weeks, 5 days. TAO by prior US: February 10, 2020. Age by LMP: 36 weeks, 6 days. TAO by LMP: February 11, 2020. US/OB Limited With Biometrics IMPRESSION: 1. Live single intrauterine at 35 weeks, 6 days. TAO is February 18, 2020. This is approximate one week behind expected gestational age by prior ultrasound. 2. EFW of 2673 g. This is at the 20th percentile. 3. ANGE of 10.7 cm. 4. Anterior grade 1 placenta. 5. Vertex presentation. Electronically Signed: Juvenal Capps DO at 19:17 EDT Tel [phone], Service support ,
== END | disposition home or self-care (01) ==
LOC: US 18:21
PROVIDERS: PCP Family Medicine; Visit Provider Obstetrics & Gynecology
DX: Z36.89 Encounter for other specified antenatal screening (principal)
CPT/HCPCS: 76816

== ENCOUNTER 2020-02-03 12:05 | Outpatient (CLI) | payer OTHER, SELFPAY ==
[2020-02-03 11:39] VITALS: BMI 33.2
[2020-02-03 12:25] VITALS: BP 126/77; PULSE 68; TEMP 36.9; O2SAT 99
[2020-02-03 12:30] VITALS: BMI 31.4
[2020-02-03] MEDS: Lactated Ringers 1,000 ML 15 ML IV (12:40)
[2020-02-03 12:43] VITALS: BP 125/76; PULSE 65
--- NOTE | 2020-02-03 12:45 | US_ITS ---
STUDY: SECOND AND THIRD TRIMESTER OBSTETRICAL ULTRASOUND REASON FOR EXAM: Female, 29 years old HTN LMP: May 07, 2019 TECHNIQUE: Transabdominal TECHNICAL QUALITY: Adequate. PRIOR ULTRASOUND: Comparison is made with prior study dated January 20, 2020. FINDINGS: There is a single intrauterine fetus. The fetus is in a cephalic presentation. There is demonstrated cardiac activity with a heart rate of 153 bpm. There is a normal amniotic fluid volume. The largest amniotic fluid pocket measures 4.1 cm. The amniotic fluid index (ANGE) is 11.9 cm. The placenta is anterior in location and is not low lying. There are Grade 2 placental changes. The adnexal regions are not visualized. Age by LMP: 38 weeks, 6 days. TAO by LMP: February 11, 2020. US/OB Limited (No Biometrics) IMPRESSION: Normal amniotic fluid index. Electronically Signed: James Craig, at 14:04 EDT , Service support ,
--- NOTE | 2020-02-03 12:47 | OB.TRI.PN ---
Progress Notes Date of Service: 02/03/20 Progress Note: Patient presents for triage evaluation secondary to elevated blood pressures in the office and low fundal height FHT: 130 Moderate variability reactive no decelerations category I tracing [place]: Irregular contractions Assessment and plan: Elevated blood pressures in , uterine size date discrepancy third trimester. ANGE 11 cm normal growth ultrasound within the last 3 weeks. Blood pressures all within normal limits in triage. Recommend follow-up in the office in 1 week reactive NST, reassuring maternal and status patient discharged to home to follow-up . See problem list details for additional plan information. Multi Select Codes - Urinary/Genital Urinary/Genital CPT Codes: 07491-19 non-stress test Interp
[2020-02-03 12:59] VITALS: BP 120/72; PULSE 64
[2020-02-03 12:59] LABS: Hematocrit 40.1 % (37-47); Hemoglobin 13.6 g/dL (12.0-15.0); Mean Corp Hgb Conc 33.9 g/dL (32-36); Mean Corpuscular Hgb 29.8 pg (27.0-32.0); Mean Corpuscular Volume 87.7 fL (81-99); Mean Platelet Vol. 10.3 fl (6.2-12.0); Platelet Count 190 K/mm3 (150-450); RBC Distribution Width CV 13.2 % (11.6-14.6); RBC Distribution Width SD 42.7 fl (35.1-43.9); Red Blood Count 4.57 M/mm3 (4.2-5.4); White Blood Count 10.3 K/mm3 (4.4-11.0)
[2020-02-03 13:12] LABS: International Normalized Ratio 0.9; Prothrombin Time (Protime)PT. 12.1 SECONDS (11.7-14.9)
[2020-02-03 13:13] LABS: Partial Thromboplast Time 26.2 Seconds (24.1-36.2)
[2020-02-03 13:14] VITALS: BP 122/75; PULSE 73; TEMP 36.7; O2SAT 99
[2020-02-03 13:26] LABS: Protein, Urine (Random) 9.4 mg/dL (<11.9); Protein:Creat Ratio 115 mg/g CRE (0-200)
[2020-02-03 13:54] VITALS: BP 145/78; PULSE 60
[2020-02-03 13:55] LABS: AST(SGOT) 10 U/L (15-37); Alanine Aminotransfer ALT/SGPT 15 U/L (13-56); Creatinine, Serum 0.59 mg/dL (0.55-1.02); EST Glomerular Filtration Rate 125 mL/min (>60); Est Glom Filt Rate - Afr Amer 151 mL/min (>60); Estimated Creatinine Clearance 124.32 ml/min
[2020-02-03 14:04] VITALS: BP 139/80; PULSE 59
== END 2020-02-03 14:15 | disposition home or self-care (01) ==
LOC: WPOUT 12:14 → OBT 12:15
PROVIDERS: Referring Provider Obstetrics & Gynecology; Visit Provider Obstetrics & Gynecology
DX: O26.849 Uterine size-date discrepancy, unspecified trimester (principal); O16.9 Unspecified maternal hypertension, unspecified trimester; Z3A.00 Weeks of gestation of pregnancy not specified
CPT/HCPCS: 36415; 59025; 59050; 76815; 82565; 82570; 84156; 84450; 84460; 84550; 85027; 85610; 85730; 99218; J7120; G0378

== ENCOUNTER 2020-02-06 13:20 | Inpatient (IN) | payer OTHER, SELFPAY ==
[2020-02-06] VITALS (26 sets, daily range): BP systolic 114–150; BP diastolic 60–97; PULSE 63–155; RESP 16; TEMP 36.2–36.6; O2SAT 95–99; BMI 31.4; BMI 31.5
[2020-02-06] MEDS: Lactated Ringers 1,000 ML 50 ML IV (13:45)
[2020-02-06 14:02] LABS: Absolute Lymphocyte Count 2.07 X10^3/uL (0.83-4.51); Absolute Neutrophil Count 7.3 X10^3/uL (2.0-7.7); Basophil# 0.01 X10^3/uL; Basophil% 0.1 % (0-1); Eosinophil# 0.03 X10^3/uL; Eosinophils% 0.3 % (0-5); Hematocrit 39.1 % (37-47); Hemoglobin 13.1 g/dL (12.0-15.0); Lymphocyte # 2.07 X10^3/ul (4.0); Lymphocyte % 20.5 % (19-41); Mean Corp Hgb Conc 33.5 g/dL (32-36); Mean Corpuscular Hgb 29.2 pg (27.0-32.0); Mean Corpuscular Volume 87.3 fL (81-99); Mean Platelet Vol. 9.9 fl (6.2-12.0); Monocyte# 0.67 X10^3/uL; Monocyte% 6.6 % (0-10); NRBC Flagged by Analyzer 0 % (0-5); Neutrophil # 7.26 X10^3/uL (2.7-7.7); Neutrophil % 71.9 % (47-70); Platelet Count 221 K/mm3 (150-450); RBC Distribution Width CV 13.3 % (11.6-14.6); RBC Distribution Width SD 42.3 fl (35.1-43.9); Red Blood Count 4.48 M/mm3 (4.2-5.4); White Blood Count 10.1 K/mm3 (4.4-11.0)
[2020-02-06] MEDS: Lactated Ringers 500 ML 999 ML IV (15:28)
[2020-02-06 16:03] LABS: ALB/GLOB Ratio 0.7 RATIO (0.9-2.4); AST(SGOT) 14 U/L (15-37); Alanine Aminotransfer ALT/SGPT 15 U/L (13-56); Albumin, Serum 2.6 g/dL (3.2-5.0); Alkaline Phosphatase 168 U/L (45-117); Anion Gap 8 (5-15); BUN 11 mg/dL (7-18); BUN/Creat Ratio 15.5 RATIO (10-20); Calcium,Total 8.5 mg/dL (8.5-10.1); Chloride 111 mmol/L (98-107); Creatinine, Serum 0.71 mg/dL (0.55-1.02); EST Glomerular Filtration Rate 101 mL/min (>60); Est Glom Filt Rate - Afr Amer 123 mL/min (>60); Estimated Creatinine Clearance 103.31 ml/min; Globulin 3.9 g/dL (2.2-4.2); Glucose 148 mg/dL (74-106); Potassium 3.8 mmol/L (3.5-5.1); Protein, Total 6.5 g/dL (6.4-8.2); Sodium Level 138 mmol/L (136-145)
[2020-02-06] MEDS: fentaNYL-bupivacaine (epidural) 100 ML BAG EPIDURAL (16:04)
[2020-02-06] MEDS: Oxytocin 30 units/NS 500 ml 30 UNITS/500 ML IV.SOLN 334 UNITS IV (16:40)
--- NOTE | 2020-02-06 17:21 | PCM.HPOB.BLA ---
- Problem List (1) Abnormal glucose tolerance affecting , antepartum Status: Acute Comment: normal 3 hr GTT (2) Elevated blood pressure affecting in third trimester, antepartum Status: Acute (3) Status: Acute Qualifiers: Comment: NIPT low risk, declines carrier. NTD negative. nl anatomy (4) Supervision of other normal Status: Acute Comment: PRR TAO 02/10/20 gender surprise PC Kulwinder Spouse:Napoleon History and Physical Date of Admission: 02/06/20 Intake Vital Signs 02/06/20 BP 150/100 H 02/06/20 Weight: 190 lb Intake Visit Reasons: est ob 39w Chief Complaint: est ob Partner Cco Required: No Is patient in pain?: No Allergies No Known Allergies Allergy (Verified 02/06/20 10:08) Medications prenat.vits,vanessa,[id number] 1 tab PO QDAY 08/25/17 [History Confirmed 02/06/20] Last Menstral Period: 01/20/17 Zika: Zika virus screening: Negative : No PFSH PFSH Surgical History history of hymenectomy (Acute) Family History Grandmother Breast cancer Father Hypertension Social History (Updated 02/06/20 @ 13:[address] Ivy Huston MD) Smoking Status: Never smoker second hand exposure: No alcohol intake: never substance use type: does not use what type of physical activity do you participate in: walking frequency: 3-4 times per week duration: 15-30 minutes/day seatbelt use: always additional social history: [employer] Pregancy History 2 Elective abortions Hx Para 1 Spontaneous abortions Hx # Term Pregnancies Ectopic pregnancies Hx # Pregnancies Multiple births # of living children Past Pregnancies Del. Date Name GA/Weeks Outcome Route Bth Weight Gen Labor Lgth Anesthesia Del Locatn Provider FOB 10/22/17 [facility] 38 live - full term HPI est ob 39w: Details: MELVINA TORRES is a 29 year old @ 39 weeks presents IAL 5 cm dilated and had elevated bps in the office today OB Visit TAO Calculator Estimated Delivery Date Method Current WG Current Estimate 02/10/20 LMP (Certain) 39w 3d Expected Delivery Route/Plan Labor Preferences- labor support person: [] pain management options preferred: [] cut cord/dad catch: [] : [] PP control planned: [] discussed possible routes of delivery and associated risks: [] special requests: [] Specific Issue/Plans flu vaccine: given tdap vaccine: given rhogam: na LARC form signed: declined movement and labor precautions reviewed. Problem list reviewed and updated with the most current plan of care details and appropriate orders placed. Relevant counseling for the gestational age provided. Continue routine care and follow up unless otherwise noted in visit notes/problem list details Initial Weight: 160 lb Date EGA Weight BP Urine Prot Glucose FHR FuHt Pres Dilation Effaced St Visit Note 08/03/19 12w 5d 163 lb 8 oz (+3 lb 8 oz) 122/78 Negative Negative 155 NO VB, LOF. NIPT today 09/02/19 17w 0d 163 lb 8 oz (+3 lb 8 oz) 138/78 150 no vb lof plan anatomy scan 09/28/19 20w 5d 164 lb (+4 lb) 122/74 Negative Negative 145 SM- no vb lof good fm no regular ctx 10/24/19 24w 3d 172 lb (+12 lb) 112/62 Negative Negative 146 24 MH-no VB, LOF. Good FM 11/14/19 27w 3d 177 lb (+17 lb) 112/70 Negative Negative 145 27 SM- no vb lof good fm no regular ctx cbc gct tdap 11/28/19 29w 3d 179 lb 8 oz (+19 lb 8 oz) 130/70 Negative Negative 145 29 SM- no vb lof good fm no regular ctx 12/12/19 31w 3d 182 lb (+22 lb) 106/62 Negative Negative 140 30 SM- no vb lof good fm no regular ctx 12/26/19 33w 3d 182 lb 8 oz (+22 lb 8 oz) 112/76 Negative Negative 140 32 SM- no vb lof good fm no regular ctx. discussed contact precautions. 01/19/20 36w 6d 187 lb 2 oz (+27 lb 2 oz) 134/76 Negative Negative 01/27/20 38w 0d 187 lb (+27 lb) 122/78 Negative Negative 135 37 Cephalic 2.5 50 -3 SM- no vb lof good fm no regular ctx 02/03/20 39w 0d 189 lb (+29 lb) 140/92 Trace Negative 135 35 3 60 -1 to l and d for evaluation 02/06/20 39w 3d 190 lb (+30 lb) 150/100 135 37 Cephalic 4 70 -1 SM- no vb lof good fm no regular ctx Notes Visit Date: 02/06/20 ??No visit notes to display Visit Date: 02/03/20 ??No visit notes to display Visit Date: 01/27/20 ??No visit notes to display Visit Date: 01/19/20 ??No visit notes to display Visit Date: 12/26/19 ??No visit notes to display Visit Date: 12/12/19 ??No visit notes to display Visit Date: 11/28/19 ??No visit notes to display Visit Date: 11/14/19 ??No visit notes to display Visit Date: 10/24/19 ??No visit notes to display Visit Date: 09/28/19 ??No visit notes to display Visit Date: 09/02/19 ??no vb lof plan anatomy scan ??Ivy Huston MD on 09/04/19 Visit Date: 08/03/19 ??NO VB, LOF. NIPT today ??Hope Simpson NP-C on 08/03/19 ACOG First Trimester First Trimester: Desire for , Alcohol, Tobacco Cessation, Illicit/Recreational Drug/Substance Use, Intimate Partner Violence, Barriers to care, Unstable Housing, Communication Barriers, Environmental/Work Hazards, Anticipated Course of Care, Toxoplasmosis Precations, Use of Any medications, Sexual activity, Exercise, Dental Care, Sauna/Hot tub use, Seat Belt use, Childbirth classes/Hospital facilities, , Travel, Indications for US and Screening for Aneuploidy Second Trimester Second Trimester: Signs and Symptoms of Labor, Selecting a care provider, Reproductive Life Planning, Care Planning, Tobacco Cessation, Depression/Anxiety and Intimate Partner Violence Third Trimester Third Trimester: Pain Management Plans, Trial of Labor after Counseling, Labor support person(s), Immediate Larc, Circumcision preference, Movement Monitoring, Signs and Symptoms of Preeclampsia, Labor Signs, Cervical Ripening/Labor Induction Counseling, Postterm Counseling, [place] Education, Family Medical Leave or Disability Forms, Depression and Depression; discussed Tobacco Cessation or discussed Intimate Partner Violence Diagnostics Diagnostics Diagnostics Gest Glucose Tolerance MG/DL 11/18/19 Glucose 1 Hr 50 gm 139 mg/dL (70-140) 11/14/19 Hgb 13.6 g/dL (12.0-15.0) 02/03/20 Hct 40.1 % (37-47) 02/03/20 Details: HIV: Urine Culture: Sequential Screen: NIPT Screen: ROS Const Reports system reviewed and no additional complaints, except as docu Card Reports system reviewed and no additional complaints, except as docu Resp Reports system reviewed and no additional complaints, except as docu GI Reports system reviewed and no additional complaints, except as docu, Reports nausea Reports system reviewed and no additional complaints, except as docu Musc Reports system reviewed and no additional complaints, except as docu Exam Const General: cooperative, healthy appearing, comfortable, anxious HENMT Head: normal to inspection Nose: external nose normal Face and sinus: normal facial exam Neck Neck: normal visual inspection, full ROM, no lymphadenopathy Thyroid: thyroid normal Chest Chest palpation & inspection: normal inspection of the chest Resp Effort & Inspection: normal respiratory effort GI Inspection: normal to inspection Palpation: soft, other (gravid uterus) Other: vertex and appropriate size for gestational age Other: Cervical Exam: Extrem General: pedal edema Coding Level of Care Code OB Routine a/p 29 yo @ 39 weeks presents IAL 5 cm dilated with GHTN admit IAL arom clear fluid labs sent plan epidural
--- NOTE | 2020-02-06 17:27 | OP.PCM_ITS ---
Problem List (1) Abnormal glucose tolerance affecting , antepartum Status: Acute Comment: normal 3 hr GTT (2) Elevated blood pressure affecting in third trimester, antepartum Status: Acute (3) Status: Acute Qualifiers: Comment: NIPT low risk, declines carrier. NTD negative. nl anatomy (4) Supervision of other normal Status: Acute Comment: PRR TAO 02/10/20 gender surprise PC Kulwinder Spouse:Napoleon Vaginal Delivery Maternal Presentation: Active Labor ial 39 weeks Amniotic Membrane Rupture Type: Artificial Amniotic Fluid Description: Clear Date of Procedure: 02/06/20 Pre-Operative Diagnosis: ial ghtn Post-Operative Diagnosis: same Surgery/ Procedure Performed: Spontaneous Vaginal Delivery Type of Anesthesia: Epidural Description of Procedure: Patient began pushing and delivered the head in the HEATH presentation. The head was delivered atraumatically . The anterior and posterior shoulders delivered without complication followed by the rest of the infant and the infant was placed on the maternal abdomen. Delayed cord clamping was employed for approximately 60 seconds. Cord was clamped and cut and gentle traction was applied to the cord and the placenta delivered spontaneously immediately following it was noted to be intact with three-vessel cord. The perineum and vagina were inspected and noted to have a small second-degree perineal laceration that was repaired in the usual fashion with 3-0 Vicryl Rapide. EBL was 300 cc. Patient and tolerated delivery well. Presentation: HEATH Placental Delivery Description: Spontaneous Placenta Disposition: [facility] Cord Vessel Description: 3 Vessels Cord Entanglement: None Estimated Blood Loss: 300 Infant A gender: Male Episiotomy Description: None Laceration: Perineal Extension/lac, 2nd degree Medications given after delivery: IV Pitocin Complications: None Multi Select Codes - Urinary/Genital Urinary/Genital CPT Codes: 09335 Vaginal Delivery [facility]
[2020-02-06] MEDS: Acetaminophen 500 MG Tablet 1000 MG PO (23:50)
[2020-02-07 03:35] VITALS: BP 121/78; PULSE 66; RESP 16; TEMP 36.3; O2SAT 95
[2020-02-07] MEDS: Naproxen 250 MG Tablet 500 MG PO (05:47)
[2020-02-07 08:30] VITALS: BP 122/80; PULSE 66; RESP 18; TEMP 36.6
--- NOTE | 2020-02-07 08:55 | PN.OBGYN_ITS ---
Subjective: doing well no complaints pain controlled no CP SOB N V ambulating well tolerating po lochia moderate, going well - Physical Exam Vitals/I&O's: Vital Signs Temp Pulse Resp BP Pulse Ox 97.3 F L 66 16 121/78 H 95 02/07/20 03:35 02/07/20 03:35 02/07/20 03:35 02/07/20 03:35 02/07/20 03:35 Oxygen Delivery Method Room Air Weight: 189 lb 8 oz Body Mass Index (BMI) 31.5 Intake and Output for Last 24 Hours 02/05/20 02/06/20 02/07/20 23:59 23:59 23:59 Intake Total 1222.50 / 1222.50 Output Total 300 / 300 Balance 922.50 / 922.50 General: Alert, Oriented x3 Laboratory Results 02/06/20 13:45: WBC 10.1, RBC 4.48, Hgb 13.1, Hct 39.1, MCV 87.3, MCH 29.2, MCHC 33.5, RDW Std Deviation 42.3, RDW Coeff of Gordy 13.3, Plt Count 221, MPV 9.9, Immature Gran % (Auto) 0.600, Neut % (Auto) 71.9 H, Lymph % (Auto) 20.5, [place] % (Auto) 6.6, Eos % (Auto) 0.3, Baso % (Auto) 0.1, Absolute Neuts (auto) 7.3, Absolute Lymphs (auto) 2.07, Nucleated RBC % 0 02/06/20 13:45: Blood Type A POSITIVE, Antibody Screen NEGATIVE 02/06/20 13:45: Sodium 138, Potassium 3.8, Chloride 111 H, Carbon Dioxide 19.0 L , Anion Gap 8, BUN 11, Creatinine 0.71, Estim Creat Clear Calc 103.31, Est GFR (MDRD) Af Amer 123, Est GFR (MDRD) Non-Af 101, BUN/Creatinine Ratio 15.5, Glucose 148 H, Calcium 8.5, Total Bilirubin 0.20, AST 14 L, ALT 15, Alkaline Phosphatase 168 H, Total Protein 6.5, Albumin 2.6 L, Globulin 3.9, Albumin /Globulin Ratio 0.7 L Current Medications Acetaminophen (Tylenol) 1,000 mg PO Q8H PRN PRN PRN Reason: Pain Score 1-3/10 Last Admin: 02/06/20 23:50 Dose: 1,000 mg Documented by: Bisacodyl (Dulcolax) 10 mg RECTAL UD PRN PRN Reason: If no BM Dibucaine (Dibucaine) 1 applic TOPICAL TID PRN PRN; Protocol PRN Reason: Discomfort Hydrocortisone (Hytone) 1 applic TOPICAL TID PRN PRN; Protocol PRN Reason: Discomfort Naproxen (Naprosyn) 500 mg PO Q8H PRN PRN PRN Reason: Pain Score 1-3/10 Last Admin: 02/07/20 05:47 Dose: 500 mg Documented by: Ondansetron HCl (Zofran) 4 mg IV Q4H PRN PRN PRN Reason: Nausea Oxycodone HCl (Oxyir) 5 - 10 mg PO Q4H PRN PRN PRN Reason: Pain Score 4-10/10 Senna/Docusate Sodium (Senokot-S, Jessica-Colace) 1 - 2 tablet PO DAILY PRN PRN PRN Reason: Constipation Simethicone (Mylicon) 80 mg PO PCHS PRN PRN Reason: Indigestion/Stomach pain Sodium Chloride () 5 - 15 ml IV UD PRN PRN Reason: SALINE FLUSH Medical Necessity - Tobacco Use Smoking Status: Never smoker Assessment/Plan All Active Problems (Last Reviewed 02/06/20 @ 10:08 by Jacklyn Pozo) Elevated blood pressure affecting in third trimester, antepartum (Acute) Abnormal glucose tolerance affecting , antepartum (Acute) (Acute) Supervision of other normal (Acute) Active labor at term (Resolved) Normal vaginal delivery (Resolved) Rubella non-immune status, antepartum (Resolved) Supervision of normal first (Resolved) s/p PPD # 1 1. routine post delivery care 2. breast feeding- support given 3. rh positive 4. rubella immune
--- NOTE | 2020-02-07 08:57 | DCINST_ITS ---
Discharge Diet: No Restrictions Discharge Activity: Return to Normal Activity, May not drive while taking narcotic pain medications., May Shower May resume sexual activity in: 4-6 weeks Call your doctor if your incision/area has: Continuous Slow Oozing, Sudden Increased Bleeding, Increased Pain/ Swelling, Increased Redness, Foul Smelling Discharge Additional Instructions: If you experience any of the following, contact your healthcare provider. * Bleeding that soaks a pad every hour for 2 hours * Fever 100.4 or higher * Unrelieved incision or abdominal pain * Swelling, redness, discharge or bleeding from your incision or episiotomy site * Your incision begins to separate * Problems urinating (including inability to urinate or burning while urinating). * Visual changes * Severe headache * Flu-like symptoms * Pain or redness in one of both of your breasts * Pain, warmth, tenderness or swelling in your legs, especially the calf area * Frequent nausea and vomiting * Symptoms of depression or anxiety If you experience any of the following, call 911 or go to the nearest Emergency Room. * Chest pain * Problems breathing * Seizure activity * Partial or complete paralysis of a body part, slurred speech, weakness or drooping of the face, or a sudden inability to walk or hold your balance Allergies/Adverse Reactions: Allergies No Known Allergies Allergy (Verified 02/06/20 13:45) Medications to take at Discharge prenat.vits,vanessa,[id number] 1 tab PO QDAY 08/25/17 Please Follow Up With: Ivy Huston MD - [phone] When: Call to make an appointment with your doctor in 6 weeks. If you had elevated Blood pressure or 4th degree laceration you will need to be seen in 2 weeks. Primary Care Physician: Almita Hussein MD [Primary Care Provider] - Test Results: Test results from this visit will be discussed in further detail at your follow- up appointment, if applicable.
--- NOTE | 2020-02-07 08:57 | PCM.DCVAG ---
Discharge Diet: No Restrictions Discharge Activity: Return to Normal Activity, May not drive while taking narcotic pain medications., May Shower May resume sexual activity in: 4-6 weeks Call your doctor if your incision/area has: Continuous Slow Oozing, Sudden Increased Bleeding, Increased Pain/ Swelling, Increased Redness, Foul Smelling Discharge Additional Instructions: If you experience any of the following, contact your healthcare provider. Bleeding that soaks a pad every hour for 2 hours Fever 100.4 or higher Unrelieved incision or abdominal pain Swelling, redness, discharge or bleeding from your incision or episiotomy site Your incision begins to separate Problems urinating (including inability to urinate or burning while urinating). Visual changes Severe headache Flu-like symptoms Pain or redness in one of both of your breasts Pain, warmth, tenderness or swelling in your legs, especially the calf area Frequent nausea and vomiting Symptoms of depression or anxiety If you experience any of the following, call 911 or go to the nearest Emergency Room. Chest pain Problems breathing Seizure activity Partial or complete paralysis of a body part, slurred speech, weakness or drooping of the face, or a sudden inability to walk or hold your balance Allergies/Adverse Reactions: Allergies No Known Allergies Allergy (Verified 02/06/20 13:45) Medications to take at Discharge prenat.vits,vanessa,[id number] 1 tab PO QDAY 08/25/17 Please Follow Up With: Ivy Huston MD - [phone] When: Call to make an appointment with your doctor in 6 weeks. If you had elevated Blood pressure or 4th degree laceration you will need to be seen in 2 weeks. Primary Care Physician: Almita Hussein MD [Primary Care Provider] - Test Results: Test results from this visit will be discussed in further detail at your follow-up appointment, if applicable.
[2020-02-07 12:00] VITALS: BP 114/68; PULSE 68; RESP 16; TEMP 36.6
[2020-02-07 18:58] VITALS: BP 111/70; PULSE 66; RESP 16; TEMP 36.6
== END 2020-02-07 19:15 | disposition home or self-care (01) | DRG 807 ==
PROVIDERS: Admitting Provider Obstetrics & Gynecology; PCP Family Medicine; Visit Provider Obstetrics & Gynecology
DX: O13.3 Gestational [pregnancy-induced] hypertension without significant proteinuria, third trimester (principal); Z37.0 Single live birth; O99.814 Abnormal glucose complicating childbirth; O70.1 Second degree perineal laceration during delivery; Z3A.39 39 weeks gestation of pregnancy
CPT/HCPCS: 59025; 59050; 80053; 85025; 86850; 86900; 86901; 99218; J7120; G0378

== ENCOUNTER → 2021-04-11 | Outpatient (CLI) | payer OTHER, SELFPAY ==
[2021-04-11 15:36] VITALS: BMI 31.5
[2021-04-17 14:41] LABS: HPV APTIMA, High Risk Negative (Negative)
== END | disposition home or self-care (01) ==
PROVIDERS: PCP Family Medicine; Referring Provider Obstetrics & Gynecology; Visit Provider Obstetrics & Gynecology
DX: N89.8 Other specified noninflammatory disorders of vagina (principal); Z12.4 Encounter for screening for malignant neoplasm of cervix
CPT/HCPCS: 87070; 87205; 87624; 88175; G0145

== ENCOUNTER → 2022-05-22 | Outpatient (CLI) | payer OTHER, SELFPAY ==
[2022-06-01 15:55] LABS: HPV APTIMA, High Risk Negative (Negative)
== END | disposition home or self-care (01) ==
PROVIDERS: PCP Family Medicine; Visit Provider Obstetrics & Gynecology
DX: Z12.4 Encounter for screening for malignant neoplasm of cervix (principal)
CPT/HCPCS: 87624; 88175; G0145

== ENCOUNTER → 2024-08-04 | Outpatient (CLI) | payer OTHER, SELFPAY | END | disposition home or self-care (01) | PROVIDERS: PCP Family Medicine; Referring Provider Physician Assistant; Visit Provider Physician Assistant | DX: N39.0 Urinary tract infection, site not specified (principal) | CPT/HCPCS: 87086; 87088; 87186 ==